=== PATIENT | female | born 1940 | race Caucasian/White ===

== ENCOUNTER 2017-10-21 08:16 | Day surgery (SDC) | payer MEDICARE, MEDICAID ==
[2017-10-20 13:31] LABS: BASOPHILS % (AUTO) 0.4 % (0-1); EOSINOPHILS # (AUTO) 0.2 X10'3 (0-0.9); EOSINOPHILS % (AUTO) 2.4 % (0-6); HEMATOCRIT 41.3 % (35.0-45.0); HEMOGLOBIN 14.2 g/dl (12.0-16.0); LYMPHOCYTES # (AUTO) 2.1 X10'3 (1.1-4.8); LYMPHOCYTES % (AUTO) 22.6 % (21-51); MEAN CORPUSCULAR HEMOGLOBIN 31.5 PG (27.0-31.0); MEAN CORPUSCULAR HGB CONC 34.3 % (33.0-36.5); MEAN CORPUSCULAR VOLUME 91.8 FL (78-98); MEAN PLATELET VOLUME 8.2 FL (7.4-10.4); MONOCYTES # (AUTO) 0.6 X10'3 (0-0.9); MONOCYTES % (AUTO) 6.7 % (2-12); NEUTROPHILS # (AUTO) 6.2 X10'3 (1.8-7.7); NEUTROPHILS % (AUTO) 67.9 % (42-75); PLATELET COUNT 227 X10'3 (140-440); RED CELL DISTRIBUTION WIDTH 13.9 % (11.5-14.5); WHITE BLOOD COUNT 9.1 X10'3 (4.5-11.0)
[2017-10-20 13:41] LABS: INR 0.9 INR; PARTIAL THROMBOPLASTIN TIME 22 SECONDS (22-32); PROTHROMBIN TIME 9.4 SECONDS (9.0-12.0)
[2017-10-20 13:45] LABS: ALANINE AMINOTRANSFERASE 14 U/L (12-78); ALBUMIN 3.1 G/DL (3.4-5.0); ALBUMIN/GLOBULIN RATIO 0.6 (1.1-1.5); ALKALINE PHOSPHATASE 143 IU/L (46-116); ANION GAP 11 (8-16); ASPARTATE AMINO TRANSFERASE 18 U/L (10-37); BILIRUBIN,TOTAL 0.8 MG/DL (0.1-1.0); BLOOD UREA NITROGEN 24 MG/DL (7-18); BUN/CREATININE RATIO 25.3 (6.6-38.0); CALCIUM 9.8 MG/DL (8.5-10.1); CHLORIDE 105 MMOL/L (99-107); CREATININE 0.95 MG/DL (0.40-0.90); GLUCOSE 115 MG/DL (70-104); POTASSIUM 4.3 MMOL/L (3.5-5.1); SODIUM 143 MMOL/L (135-145); TOTAL CARBON DIOXIDE 27.5 MMOL/L (24-32); TOTAL PROTEIN 8.3 G/DL (6.4-8.2); eGFR 57 ML/MIN
[~2017-10-21] VITALS: Ht 157.5 cm; Wt 74.3 kg
[2017-10-21] VITALS (12 sets, daily range): BP systolic 96–135; BP diastolic 46–101
[2017-10-21] MEDS ORDERED: LIDOcaine 1% (10mg/ml) 2ml vial ONE (08:35)
[2017-10-21] MEDS ORDERED: normal saline 1000ml 1,000 ML IV SCH (08:45)
[2017-10-21] MEDS ORDERED: LORazepam 0.5 MG tablet PO PRN (08:45)
[2017-10-21] MEDS ORDERED: nitroGLYCERIN 0.4mg SUBLingual tab SL PRN (08:45)
[2017-10-21] MEDS ORDERED: diphenhydrAMINE 25mg capsule PO PRN (08:45)
[2017-10-21] MEDS ORDERED: ATOR20TA PO (08:52)
[2017-10-21] MEDS ORDERED: MONT10TA21 PO (08:52)
[2017-10-21] MEDS ORDERED: FLUT1DIS7 INH (08:52)
[2017-10-21] MEDS ORDERED: METO-395 PO (08:52)
[2017-10-21] MEDS ORDERED: CELE-193 PO (08:52)
[2017-10-21] MEDS ORDERED: OXYB5TAB11 PO (08:52)
[2017-10-21] MEDS ORDERED: HYDR-569 PO (08:52)
[2017-10-21] MEDS ORDERED: OMEG1CAP2 PO (08:52)
[2017-10-21] MEDS ORDERED: MULT1TAB74 PO (08:52)
[2017-10-21] MEDS ORDERED: NORT25CA PO (08:52)
[2017-10-21] MEDS ORDERED: LORA10TA61 PO (08:52)
[2017-10-21] MEDS ORDERED: ALBU18HF2 INH (08:52)
[2017-10-21] MEDS ORDERED: ASPI81TA52 PO (08:52)
[2017-10-21] MEDS ORDERED: LIDOcaine 1%/PF (10mg/ml) 5ml vial ONE (10:18)
[2017-10-21] MEDS ORDERED: iohexol 350MG/ML 100ml bottle IV ONE (10:18)
[2017-10-21] MEDS ORDERED: iohexol 350 MG/ML 50ML vial IV ONE ×2 (10:18→11:00)
[2017-10-21] MEDS ORDERED: midazolam 2 mg/2 ml injection ONE (10:35)
[2017-10-21] MEDS ORDERED: fentaNYL/PF 50MCG/1 ML 2ML syringe ONE ×2 (10:36→11:03)
[2017-10-21] MEDS ORDERED: HYDROcodone/acetaminophen 10/325mg tab PO PRN (12:20)
[2017-10-21] MEDS ORDERED: proCHLORperazine 10 MG/2 ml inj IV PRN (12:20)
[2017-10-21] MEDS ORDERED: OXAZEpam 15mg capsule PO PRN (12:20)
[2017-10-21] MEDS ORDERED: HYDROcodone/acetaminophen 5mg/325mg tablet PO PRN (12:20)
[2017-10-21] MEDS ORDERED: ondansetron/PF 4mg/2ml inj IV PRN (12:20)
[2017-10-28] MEDS ORDERED: LEVO75TA PO (15:44)
== END 2017-10-21 18:20 | disposition home or self-care (01) ==
LOC: SSTAY O 08:16
PROVIDERS: ATTEND Internal Medicine Cardiovascular Disease
DX: I25.10 Atherosclerotic heart disease of native coronary artery without angina pectoris (principal); I47.1 Supraventricular tachycardia; G89.4 Chronic pain syndrome; F32.9 Major depressive disorder, single episode, unspecified; B15.9 Hepatitis A without hepatic coma; I10 Essential (primary) hypertension; M19.90 Unspecified osteoarthritis, unspecified site; E78.5 Hyperlipidemia, unspecified; Z79.82 Long term (current) use of aspirin; Z87.891 Personal history of nicotine dependence; Z86.73 Personal history of transient ischemic attack (TIA), and cerebral infarction without residual deficits; Z86.718 Personal history of other venous thrombosis and embolism; Z85.43 Personal history of malignant neoplasm of ovary; Z90.12 Acquired absence of left breast and nipple; Z90.49 Acquired absence of other specified parts of digestive tract; Z90.89 Acquired absence of other organs; Z96.653 Presence of artificial knee joint, bilateral; Z96.642 Presence of left artificial hip joint; Z98.42 Cataract extraction status, left eye; Z98.41 Cataract extraction status, right eye; Z85.3 Personal history of malignant neoplasm of breast; Z88.6 Allergy status to analgesic agent; Z79.899 Other long term (current) drug therapy
CPT/HCPCS: 36415; 71046; 80053; 85025; 85610; 85730; 93005; 93458; 93567; 99152; 99153; A6257; C1769; J1644; J2001; J2250; J3010; J3490; J7030; Q0163; Q9967; A4620

== ENCOUNTER 2017-11-02 09:30 | Day surgery (SDC) | payer MEDICARE, MEDICAID ==
[2017-10-28 16:37] LABS: BASOPHILS % (AUTO) 0.3 % (0-1); EOSINOPHILS # (AUTO) 0.2 X10'3 (0-0.9); EOSINOPHILS % (AUTO) 2.1 % (0-6); LYMPHOCYTES # (AUTO) 1.9 X10'3 (1.1-4.8); LYMPHOCYTES % (AUTO) 23.2 % (21-51); MEAN CORPUSCULAR HEMOGLOBIN 32.5 PG (27.0-31.0); MEAN PLATELET VOLUME 7.9 FL (7.4-10.4); MONOCYTES # (AUTO) 0.6 X10'3 (0-0.9); MONOCYTES % (AUTO) 7.7 % (2-12); NEUTROPHILS # (AUTO) 5.5 X10'3 (1.8-7.7); NEUTROPHILS % (AUTO) 66.7 % (42-75); PRE OP HEMATOCRIT 39.9 % (35.0-45.0); PRE OP HEMOGLOBIN 13.9 g/dL (12.0-16.0); PRE OP PLATELET COUNT 250 X10'3 (140-440); RED BLOOD COUNT 4.29 X10'6 (4.20-5.60); RED CELL DISTRIBUTION WIDTH 13.8 % (11.5-14.5)
[2017-10-28 16:54] LABS: ALBUMIN/GLOBULIN RATIO 0.9 (1.1-1.5); ALKALINE PHOSPHATASE 174 IU/L (46-116); BLOOD UREA NITROGEN 23 MG/DL (7-18); CALCIUM 9.5 MG/DL (8.5-10.1); CHLORIDE 104 MMOL/L (99-107); PRE OP ALT 28 U/L (30-65); PRE OP ANION GAP 12 (8-16); PRE OP AST 19 U/L (10-37); PRE OP BILIRUB, TOTAL 0.9 MG/DL (0.0-1.0); PRE OP GLUCOSE 144 MG/DL (70-104); PRE OP POTASSIUM 4.1 MMOL/L (3.4-5.1); PRE OP SODIUM 141 MMOL/L (135-145); TOTAL CARBON DIOXIDE 24.6 MMOL/L (24-32); TOTAL PROTEIN 8.4 G/DL (6.4-8.2); eGFR 54 ML/MIN
[2017-11-02] VITALS (16 sets, daily range): BP systolic 98–145; BP diastolic 54–72
[~2017-11-02] VITALS: Ht 157.5 cm; Wt 73.9 kg
[~2017-11-02 09:30] MED LIST: ALBU18HF2 INH; ASPI81TA52 PO; ATOR20TA PO; CELE-193 PO; DEXTROSE 5% IV ONE; DOCUMENT DATE & TIME OF BETA-BLOCKER PO ONE; GENTAMICIN IV ONE; HYDR-569 PO; LEVO25TA7 PO; LORA10TA61 PO; METO-395 PO; MONT10TA21 PO; MULT1TAB74 PO; NORT25CA PO; OMEG1CAP2 PO; OXYB5TAB11 PO; WATER IV ONE; albuterol 2.5 MG/3 ML nebule NEB ONE; cefoxitin sod inj 2,000 MG in dextrose 5%-water 50ml 50 ML IV ONE; clindamycin-Cleocin 900mg/D5W 50 ML IV ONE; famotidine 20mg tablet PO ONE
[2017-11-02] MEDS ORDERED: ceFAZolin 1000mg inj ONE (10:17)
[2017-11-02] MEDS ORDERED: clindamycin phosphate 40gm vag cream ONE (10:17)
[2017-11-02] MEDS ORDERED: vasoPRESSIN 20 units/ml inj. ONE (10:17)
[2017-11-02] MEDS: ringers solution, lacted 1,000 ML IV SCH ×4 (10:45→20:52)
[2017-11-02] MEDS ORDERED: sevoflurane 250ml liquid IH ONE (11:17)
[2017-11-02] MEDS ORDERED: furosemide 20 MG/2 ML vial ONE (11:17)
[2017-11-02] MEDS ORDERED: dexamethasone sod phosphate 4mg/ml inj. ONE (11:17)
[2017-11-02] MEDS ORDERED: fentaNYL/PF 50MCG/1 ML 2ML syringe ONE (11:21)
[2017-11-02] MEDS ORDERED: midazolam 2 mg/2 ml injection ONE (11:24)
[2017-11-02] MEDS ORDERED: propofol inj 20 ML IV ONE (11:24)
[2017-11-02] MEDS ORDERED: ringers solution, lacted 1,000 ML IV SCH (11:58)
[2017-11-02] MEDS ORDERED: proCHLORperazine 10 MG/2 ml inj IV PRN (12:00)
[2017-11-02] MEDS ORDERED: meperidine/PF 50mg/ml syringe IV PRN ×3 (12:00)
[2017-11-02] MEDS ORDERED: morphine 4 MG/ML inj SYRINge IV PRN ×2 (12:00)
[2017-11-02] MEDS ORDERED: ondansetron/PF 4mg/2ml inj IV PRN (12:00)
[2017-11-02] MEDS ORDERED: magnesium hydroxide 30ml (MOM) UD suspension PO PRN (12:30)
[2017-11-02] MEDS ORDERED: ondansetron/PF 4mg/2ml inj ONE (12:30)
[2017-11-02] MEDS ORDERED: temazepam 15mg capsule PO PRN (12:30)
[2017-11-02] MEDS ORDERED: normal saline 500ml IV soln 500 ML IV PRN (12:30)
[2017-11-02] MEDS ORDERED: CADD PCA waste documentation MC PRN (12:30)
[2017-11-02] MEDS ORDERED: diphenhydrAMINE 50 mg/ml inj IV PRN (12:30)
[2017-11-02] MEDS ORDERED: ketorolac tromethamine 15mg/ml inj. IV PRN (12:30)
[2017-11-02] MEDS ORDERED: HYDROcodone/acetaminophen 5mg/325mg tablet PO PRN ×2 (12:30)
[2017-11-02] MEDS ORDERED: naloxone 0.4 mg/ml inj IV PRN (12:30)
[2017-11-02] MEDS: HYDROmorphone/NS 1 mg/ml CADD 50 ML IV SCH ×6 (13:00→23:00)
[2017-11-02] MEDS: simethicone 80mg chew tab PO SCH ×2 (13:00→17:04)
[2017-11-02] MEDS ORDERED: acetaminophen 1,000mg/100ml IV 100 ML IV SCH (14:00)
[2017-11-02] MEDS ORDERED: albuterol 2.5 MG/3 ML nebule NEB PRN (15:40)
[2017-11-02] MEDS: docusate sod 100mg capsule PO SCH (20:45)
[2017-11-02] MEDS: oxybutynin 5mg tablet PO SCH (20:45)
[2017-11-02] MEDS: metoprolol tartrate 12.5mg (1/2 tablet) PO SCH (20:46)
[2017-11-02] MEDS ORDERED: atorvastatin 20mg tablet PO SCH (21:00)
[2017-11-02] MEDS ORDERED: nortriptyline 25mg capsule PO SCH (21:00)
[2017-11-03] VITALS: BP 112/56
[2017-11-03] MEDS: HYDROmorphone/NS 1 mg/ml CADD 50 ML IV SCH ×4 (01:00→07:00)
[2017-11-03] MEDS: ringers solution, lacted 1,000 ML IV SCH ×2 (04:29→12:29)
[2017-11-03 05:50] LABS: BASOPHILS % (AUTO) 0.1 % (0-1); EOSINOPHILS # (AUTO) 0.1 X10'3 (0-0.9); EOSINOPHILS % (AUTO) 1.1 % (0-6); HEMATOCRIT 30.2 % (35.0-45.0); HEMOGLOBIN 10.4 g/dl (12.0-16.0); LYMPHOCYTES # (AUTO) 1.3 X10'3 (1.1-4.8); LYMPHOCYTES % (AUTO) 10.1 % (21-51); MEAN CORPUSCULAR HEMOGLOBIN 31.5 PG (27.0-31.0); MEAN CORPUSCULAR HGB CONC 34.4 % (33.0-36.5); MEAN CORPUSCULAR VOLUME 91.8 FL (78-98); MEAN PLATELET VOLUME 8.3 FL (7.4-10.4); MONOCYTES # (AUTO) 0.9 X10'3 (0-0.9); MONOCYTES % (AUTO) 7.3 % (2-12); NEUTROPHILS # (AUTO) 10.5 X10'3 (1.8-7.7); NEUTROPHILS % (AUTO) 81.4 % (42-75); PLATELET COUNT 213 X10'3 (140-440); RED BLOOD COUNT 3.29 X10'6 (4.20-5.60); RED CELL DISTRIBUTION WIDTH 13.7 % (11.5-14.5); WHITE BLOOD COUNT 12.9 X10'3 (4.5-11.0)
[2017-11-03] MEDS ORDERED: montelukast 10mg tablet PO SCH (08:00)
[2017-11-03] MEDS ORDERED: loratadine 10mg tablet PO SCH (08:00)
[2017-11-03] MEDS: metoprolol tartrate 12.5mg (1/2 tablet) PO SCH (08:00)
[2017-11-03] MEDS ORDERED: levoTHYROXINE 25mcg tablet PO SCH (08:00)
[2017-11-03 08:39] VITALS: BP 104/46
[2017-11-03] MEDS: simethicone 80mg chew tab PO SCH ×2 (08:57→12:42)
[2017-11-03] MEDS: oxybutynin 5mg tablet PO SCH (08:59)
[2017-11-03] MEDS: docusate sod 100mg capsule PO SCH (09:00)
[2017-11-03 11:23] VITALS: BP 122/47
== END 2017-11-03 17:30 | disposition home or self-care (01) ==
LOC: PAS 09:30 → SUR 3N 15:02 → PAS 11-03 17:30
PROVIDERS: ATTEND Specialist
DX: N81.11 Cystocele, midline (principal); N76.1 Subacute and chronic vaginitis; N39.46 Mixed incontinence; F32.9 Major depressive disorder, single episode, unspecified; I49.9 Cardiac arrhythmia, unspecified; J44.9 Chronic obstructive pulmonary disease, unspecified; E66.9 Obesity, unspecified; Z86.73 Personal history of transient ischemic attack (TIA), and cerebral infarction without residual deficits; Z79.82 Long term (current) use of aspirin; Z88.5 Allergy status to narcotic agent; Z90.89 Acquired absence of other organs; Z87.891 Personal history of nicotine dependence; Z96.653 Presence of artificial knee joint, bilateral; Z90.49 Acquired absence of other specified parts of digestive tract; Z96.642 Presence of left artificial hip joint; Z98.42 Cataract extraction status, left eye; Z98.41 Cataract extraction status, right eye; Z85.3 Personal history of malignant neoplasm of breast; Z90.12 Acquired absence of left breast and nipple; Z68.29 Body mass index [BMI] 29.0-29.9, adult; Z98.890 Other specified postprocedural states; Z79.899 Other long term (current) drug therapy
CPT/HCPCS: 36415; 51992; 57240; 80053; 85025; 86885; 86900; 86901; A4315; A4355; C1771; J0690; J0694; J1100; J1170; J1940; J2250; J2405; J2704; J3010; J3490; J7030; J7060; J7120; A6250; A7000; J1580